=== PATIENT | female | born 1980 | race Caucasian/White ===

== ENCOUNTER 2017-05-30 21:25 | Emergency (ER) | payer SELFPAY ==
[~2017-05-30] VITALS: Ht 170.2 cm; Wt 83.2 kg
[~2017-05-30 21:25] MED LIST: BACTRIM DS1 TAB PO; CLEOCIN150 MG PO; FLEXERIL PO; KEFLEX500 MG PO; LIPITOR80 MG PO; LORCET 5-325 MG1 TAB; LORTAB 5/3255 MG PO; LORTAB 7.5-3251 TAB PO; LORTAB 7.57.5 MG PO; MOTRIN800 MG PO; MUCINEX D1 TAB PO; NAPROSYN500 MG PO; NO HOME MEDS; STERAPRED DS10 MG PO; ULTRAM50 M1 PO; ULTRAM50 MG PO; ZANAFLEX4 M2 PO; ZITHROMAX250 MG PO
[2017-05-30] MEDS ORDERED: NAPROSYN500 MG PO (22:29)
[2017-05-30 23:05] VITALS: BP 136/85
== END 2017-05-30 23:05 | disposition home or self-care (01) | DRG 563 ==
LOC: ED 21:25
DX: S46.911A Strain of unspecified muscle, fascia and tendon at shoulder and upper arm level, right arm, initial encounter (principal); F17.210 Nicotine dependence, cigarettes, uncomplicated; X50.9XXA Other and unspecified overexertion or strenuous movements or postures, initial encounter

== ENCOUNTER 2017-09-06 10:54 | Emergency (ER) | payer MEDICAID ==
[~2017-09-06] VITALS: Ht 170.2 cm; Wt 82.8 kg
[2017-09-06] MEDS ORDERED: PROVENTIL HFA IN (12:53)
[2017-09-06] MEDS ORDERED: ZITHROMAX250 MG PO (12:53)
[2017-09-06 13:26] VITALS: BP 124/80
== END 2017-09-06 13:27 | disposition home or self-care (01) | DRG 203 ==
LOC: ED 10:54
DX: J40 Bronchitis, not specified as acute or chronic (principal); F17.210 Nicotine dependence, cigarettes, uncomplicated; R05 Cough; R11.10 Vomiting, unspecified; R10.9 Unspecified abdominal pain; R09.89 Other specified symptoms and signs involving the circulatory and respiratory systems

== ENCOUNTER 2017-12-28 23:02 | Emergency (ER) | payer MEDICAID ==
[~2017-12-28] VITALS: Ht 165.1 cm; Wt 72.7 kg
[~2017-12-28 23:02] MED LIST changes: +PROVENTIL HFA IN
[2017-12-28] MEDS ORDERED: VYVANSE50 MG PO (23:09)
[2017-12-28] MEDS ORDERED: LIPITOR20 MG PO (23:09)
[2017-12-28] MEDS ORDERED: BUSPIRONE5 MG PO (23:10)
[2017-12-28 23:50] VITALS: BP 155/84
== END 2017-12-28 23:52 | disposition home or self-care (01) | DRG 605 ==
LOC: ED 23:02
DX: S90.31XA Contusion of right foot, initial encounter (principal); F17.210 Nicotine dependence, cigarettes, uncomplicated; W22.8XXA Striking against or struck by other objects, initial encounter

== ENCOUNTER 2018-02-20 00:59 | Emergency (ER) | payer OTHER ==
[~2018-02-20] VITALS: Ht 165.1 cm; Wt 69.4 kg
[~2018-02-20 00:59] MED LIST changes: +BUSPIRONE5 MG PO; +LIPITOR20 MG PO; +VYVANSE50 MG PO
[2018-02-20] MEDS ORDERED: BACTRIM DS1 TAB PO (01:28)
[2018-02-20 01:39] VITALS: BP 157/98
== END 2018-02-20 01:39 | disposition home or self-care (01) ==
LOC: ED 00:59
DX: L02.214 Cutaneous abscess of groin (principal); R10.32 Left lower quadrant pain; F17.210 Nicotine dependence, cigarettes, uncomplicated

== ENCOUNTER 2018-05-09 21:14 | Emergency (ER) | payer OTHER ==
[~2018-05-09] VITALS: Ht 167.6 cm; Wt 68.1 kg
[2018-05-09] MEDS ORDERED: ULTRAM50 M1 PO (22:24)
[2018-05-09 22:40] VITALS: BP 159/80
== END 2018-05-09 22:45 | disposition home or self-care (01) ==
LOC: ED 21:14
DX: S61.213A Laceration without foreign body of left middle finger without damage to nail, initial encounter (principal); S61.215A Laceration without foreign body of left ring finger without damage to nail, initial encounter; S61.217A Laceration without foreign body of left little finger without damage to nail, initial encounter; F90.9 Attention-deficit hyperactivity disorder, unspecified type; F41.9 Anxiety disorder, unspecified; F17.200 Nicotine dependence, unspecified, uncomplicated; W26.0XXA Contact with knife, initial encounter; Y93.89 Activity, other specified; Y92.009 Unspecified place in unspecified non-institutional (private) residence as the place of occurrence of the external cause

== ENCOUNTER 2019-08-24 | Emergency (ER) | payer OTHER ==
[2019-08-24] MEDS ORDERED: IBUPROFEN600 MG PO (00:16)
[2019-08-24] MEDS ORDERED: BENADRYL 50MG C50 MG PO (00:16)
[2019-08-24] MEDS ORDERED: LOMOTIL2.5 MG PO (00:16)
[2020-05-28] MEDS ORDERED: MOTRIN800 MG PO (11:11)
[2020-05-28] MEDS ORDERED: ALLEGRA180 MG PO (11:11)
[2020-05-28] MEDS ORDERED: METHOCARBAMOL500 MG PO (11:12)
[2020-05-28] MEDS ORDERED: OMEPRAZOLE DR40 MG PO (11:12)
[2020-05-28] MEDS ORDERED: LATANOPROST0.005 % OP (11:12)
[2020-05-28] MEDS ORDERED: PROAIR HFA IN (11:13)
== END 2019-08-24 01:00 | disposition home or self-care (01) ==
DX: S00.86XA Insect bite (nonvenomous) of other part of head, initial encounter (principal); S30.860A Insect bite (nonvenomous) of lower back and pelvis, initial encounter; R19.7 Diarrhea, unspecified; F17.210 Nicotine dependence, cigarettes, uncomplicated; W57.XXXA Bitten or stung by nonvenomous insect and other nonvenomous arthropods, initial encounter; Y92.828 Other wilderness area as the place of occurrence of the external cause

== ENCOUNTER 2019-10-09 | Emergency (ER) | payer OTHER ==
[~2019-10-09] MED LIST changes: +BENADRYL 50MG C50 MG PO; +IBUPROFEN600 MG PO; +LOMOTIL2.5 MG PO
[2019-10-09 23:44] LABS: URINE BILIRUBIN - DIPSTICK NEGATIVE (NEGATIVE); URINE BLOOD DIPSTICK NEGATIVE (NEGATIVE); URINE COLOR YELLOW; URINE GLUCOSE - DIPSTICK NEGATIVE (NEGATIVE); URINE KETONE NEGATIVE (NEGATIVE); URINE LEUK ESTERASE NEGATIVE (NEGATIVE); URINE NITRITE - DIPSTICK NEGATIVE (Negative); URINE PROTEIN - DIPSTICK NEGATIVE (NEG-TRACE); URINE SPECIFIC GRAVITY <=1.005; URINE UROBILINOGEN - DIPSTICK 0.2 E.U./dL (0.2)
[2019-10-10] MEDS ORDERED: MEDDOSEPAK PO (00:18)
[2019-10-10] MEDS ORDERED: ZITHROMAX250 MG PO (00:18)
[2019-10-10] MEDS ORDERED: ROBITUSSIN AC10 ML PO (00:21)
[2019-10-10] MEDS ORDERED: CORTISPORIN OTI10 ML AU (00:42)
[2019-10-10] MEDS ORDERED: TRAZODONE HCL100 MG PO (00:45)
[2019-10-10] MEDS ORDERED: VENLAFAXINE HCL75 M1 PO (00:46)
[2020-05-28] MEDS ORDERED: MOTRIN800 MG PO (11:11)
[2020-05-28] MEDS ORDERED: ALLEGRA180 MG PO (11:11)
[2020-05-28] MEDS ORDERED: OMEPRAZOLE DR40 MG PO (11:12)
[2020-05-28] MEDS ORDERED: LATANOPROST0.005 % OP (11:12)
[2020-05-28] MEDS ORDERED: METHOCARBAMOL500 MG PO (11:12)
[2020-05-28] MEDS ORDERED: PROAIR HFA IN (11:13)
== END 2019-10-10 00:38 | disposition home or self-care (01) ==
PROVIDERS: Emergency Medicine
DX: J06.9 Acute upper respiratory infection, unspecified (principal); F17.210 Nicotine dependence, cigarettes, uncomplicated

== ENCOUNTER 2019-11-17 | Emergency (ER) | payer OTHER ==
[~2019-11-17] MED LIST changes: +CORTISPORIN OTI10 ML AU; +MEDDOSEPAK PO; +ROBITUSSIN AC10 ML PO; +TRAZODONE HCL100 MG PO; +VENLAFAXINE HCL75 M1 PO
[2019-11-17 03:41] LABS: HEMATOCRIT 42.5 % (37.0-47.0); IMMATURE GRANULOCYTES 0.3 % (0.0-5.0); MEAN CELL VOLUME 91.6 fL CALC (80.0-100.0); MEAN CORPUSCULAR HGB 30.2 pG CALC (26.0-32.0); MEAN CORPUSCULAR HGB CONC 32.9 g/dL CAL (32.0-36.0); NEUT# 5.97 thou/uL (2.00-7.15); RED BLOOD COUNT 4.64 mill/uL (4.20-5.60); RED CELL DISTRI WIDTH 13.2 % (11.5-15.5)
[2019-11-17 03:49] LABS: ALBUMIN 4.4 g/dL (3.2-5.0); ALKALINE PHOSPHATASE 85 u/l (38-126); BUN 11 mg/dL (7-17); BUN/CREATININE RATIO 16 (12-20 (CALC)); CARBON DIOXIDE 25 mmol/l (22-30); CHLORIDE 106 mmol/l (95-108); CREATININE 0.7 mg/dL (0.5-1.0); ETHYL ALCOHOL 0 mg/dl (0-30); GFR > 60 ML/MIN (>=60 (CALC)); GFR FOR AFR.AMER. > 60 ML/MIN (>=60 (CALC)); LIPASE 33 u/l (23-300); SGOT/AST 33 u/l (14-36); SODIUM 138 mmol/l (137-146); TOTAL PROTEIN 7.5 g/dL (6.3-8.2)
[2019-11-17 03:51] LABS: ANION GAP 11 (6-22 (CALC)); BILIRUBIN, TOTAL 0.5 mg/dL (0.0-1.4); POTASSIUM 3.5 mmol/l (3.5-5.1)
[2019-11-17] MEDS ORDERED: TESSALON PER100 MG PO (05:56)
[2019-11-17] MEDS ORDERED: ZITHROMAX250 MG PO (05:56)
[2019-11-17] MEDS ORDERED: TRAMADOL HYDROC50 MG PO (05:56)
--- NOTE | 2019-11-20 10:12 | NUR ---
Notified patient of Covid results (Negative). Advised pt to follow up with PCP or come to ED for urgent needs. Advised pt to continue to practice Covid prevention such as handwashing and avoiding contact with others. Patient verbalized understanding.
[2020-05-28] MEDS ORDERED: MOTRIN800 MG PO (11:11)
[2020-05-28] MEDS ORDERED: ALLEGRA180 MG PO (11:11)
[2020-05-28] MEDS ORDERED: METHOCARBAMOL500 MG PO (11:12)
[2020-05-28] MEDS ORDERED: LATANOPROST0.005 % OP (11:12)
[2020-05-28] MEDS ORDERED: OMEPRAZOLE DR40 MG PO (11:12)
[2020-05-28] MEDS ORDERED: PROAIR HFA IN (11:13)
== END 2019-11-17 06:39 | disposition home or self-care (01) ==
DX: M94.0 Chondrocostal junction syndrome [Tietze] (principal); J06.9 Acute upper respiratory infection, unspecified; F17.210 Nicotine dependence, cigarettes, uncomplicated; Z20.828 Contact with and (suspected) exposure to other viral communicable diseases

== ENCOUNTER 2019-11-30 | Emergency (ER) | payer OTHER ==
[~2019-11-30] MED LIST changes: +TESSALON PER100 MG PO; +TRAMADOL HYDROC50 MG PO
[2019-11-30] MEDS ORDERED: TRAZODONE50 MG PO (23:32)
[2019-11-30] MEDS ORDERED: METOPROL TAR25 MG PO (23:33)
[2019-11-30] MEDS ORDERED: HYDROCHLOROT25 MG PO (23:34)
[2019-12-01 00:21] LABS: HEMATOCRIT 42.6 % (37.0-47.0); HEMOGLOBIN 14.1 g/dl (12.0-16.0); IMMATURE GRANULOCYTES 0.3 % (0.0-5.0); MEAN CELL VOLUME 91.6 fL CALC (80.0-100.0); MEAN CORPUSCULAR HGB 30.3 pG CALC (26.0-32.0); MEAN CORPUSCULAR HGB CONC 33.1 g/dL CAL (32.0-36.0); NEUT# 6.84 thou/uL (2.00-7.15); RED BLOOD COUNT 4.65 mill/uL (4.20-5.60); RED CELL DISTRI WIDTH 13.2 % (11.5-15.5)
[2019-12-01 00:27] LABS: URINE BILIRUBIN - DIPSTICK NEGATIVE (NEGATIVE); URINE BLOOD DIPSTICK MODERATE (NEGATIVE); URINE COLOR YELLOW; URINE GLUCOSE - DIPSTICK NEGATIVE (NEGATIVE); URINE KETONE NEGATIVE (NEGATIVE); URINE LEUK ESTERASE NEGATIVE (NEGATIVE); URINE NITRITE - DIPSTICK NEGATIVE (Negative); URINE PROTEIN - DIPSTICK NEGATIVE (NEG-TRACE); URINE SPECIFIC GRAVITY 1.025; URINE UROBILINOGEN - DIPSTICK 0.2 E.U./dL (0.2)
[2019-12-01 00:28] LABS: URINE BACTERIA FEW hpf; URINE EPITHELIAL CELLS MODERATE EPI/hpf (0-FEW)
[2019-12-01 00:32] LABS: CREATININE 0.6 mg/dL (0.5-1.0); GFR > 60 ML/MIN (>=60 (CALC)); GFR FOR AFR.AMER. > 60 ML/MIN (>=60 (CALC)); SODIUM 138 mmol/l (137-146)
[2019-12-01 01:25] LABS: ALBUMIN 4.4 g/dL (3.2-5.0); ALKALINE PHOSPHATASE 84 u/l (38-126); ANION GAP 13 (6-22 (CALC)); BILIRUBIN, TOTAL 0.4 mg/dL (0.0-1.4); BUN 9 mg/dL (7-17); BUN/CREATININE RATIO 14 (12-20 (CALC)); CARBON DIOXIDE 24 mmol/l (22-30); CHLORIDE 105 mmol/l (95-108); LIPASE 81 u/l (23-300); POTASSIUM 3.2 mmol/l (3.5-5.1); SGOT/AST 24 u/l (14-36); TOTAL PROTEIN 7.4 g/dL (6.3-8.2)
[2019-12-01] MEDS ORDERED: CIPROFLOXACN500 MG PO (03:02)
[2019-12-01] MEDS ORDERED: METRONIDAZOL500 MG PO (03:02)
--- NOTE | 2019-12-02 08:41 | NUR ---
COVID results called with confirmation of name and . Encouraged stay home - stay safe measures, frequent hand washing/sanitizing. Patient states she is feeling a little better. Instructed pt to seek medical care if needed.
[2020-05-28] MEDS ORDERED: ALLEGRA180 MG PO (11:11)
[2020-05-28] MEDS ORDERED: MOTRIN800 MG PO (11:11)
[2020-05-28] MEDS ORDERED: OMEPRAZOLE DR40 MG PO (11:12)
[2020-05-28] MEDS ORDERED: LATANOPROST0.005 % OP (11:12)
[2020-05-28] MEDS ORDERED: METHOCARBAMOL500 MG PO (11:12)
[2020-05-28] MEDS ORDERED: PROAIR HFA IN (11:13)
== END 2019-12-01 03:33 | disposition home or self-care (01) ==
PROVIDERS: Emergency Medicine
DX: K50.10 Crohn's disease of large intestine without complications (principal); T81.41XA Infection following a procedure, superficial incisional surgical site, initial encounter; Y83.8 Other surgical procedures as the cause of abnormal reaction of the patient, or of later complication, without mention of misadventure at the time of the procedure; F17.200 Nicotine dependence, unspecified, uncomplicated; Z20.828 Contact with and (suspected) exposure to other viral communicable diseases
CPT/HCPCS: Q9967

== ENCOUNTER 2020-01-06 13:50 | Emergency (ER) | payer OTHER ==
[~2020-01-06 13:50] MED LIST changes: +CIPROFLOXACN500 MG PO; +HYDROCHLOROT25 MG PO; +METOPROL TAR25 MG PO; +METRONIDAZOL500 MG PO; +TRAZODONE50 MG PO
[2020-01-06 15:31] VITALS: BP 137/90
[2020-05-28] MEDS ORDERED: ALLEGRA180 MG PO (11:11)
[2020-05-28] MEDS ORDERED: MOTRIN800 MG PO (11:11)
[2020-05-28] MEDS ORDERED: LATANOPROST0.005 % OP (11:12)
[2020-05-28] MEDS ORDERED: OMEPRAZOLE DR40 MG PO (11:12)
[2020-05-28] MEDS ORDERED: METHOCARBAMOL500 MG PO (11:12)
[2020-05-28] MEDS ORDERED: PROAIR HFA IN (11:13)
== END 2020-01-06 15:38 | disposition home or self-care (01) ==
LOC: ED 13:50
DX: S91.115A Laceration without foreign body of left lesser toe(s) without damage to nail, initial encounter (principal); S93.402A Sprain of unspecified ligament of left ankle, initial encounter; S93.602A Unspecified sprain of left foot, initial encounter; F17.210 Nicotine dependence, cigarettes, uncomplicated; W01.0XXA Fall on same level from slipping, tripping and stumbling without subsequent striking against object, initial encounter; Y92.009 Unspecified place in unspecified non-institutional (private) residence as the place of occurrence of the external cause

== ENCOUNTER 2020-02-15 23:12 | Emergency (ER) | payer OTHER ==
[~2020-02-15] VITALS: Ht 165.1 cm; Wt 65.9 kg
[2020-02-15] MEDS ORDERED: AMPHETAMINE PO (23:44)
[2020-02-15] MEDS ORDERED: DEX PO (23:44)
[2020-02-15] MEDS ORDERED: TRAZODONE100 MG PO (23:45)
[2020-02-15] MEDS ORDERED: ATIVAN1 MG PO (23:45)
[2020-02-15] MEDS ORDERED: VENLAFAXINE HCL75 M1 PO (23:45)
[2020-02-15] MEDS ORDERED: HYDROCHLOROT12.5 MG PO (23:45)
[2020-02-15] MEDS ORDERED: SPIRIVA HANDIH18 MCG IN (23:46)
[2020-02-15] MEDS ORDERED: PROAIR HFA108 MCG/AC IN (23:46)
[2020-02-15] MEDS ORDERED: SYMBICORT1 AE1 IN (23:46)
[2020-02-15] MEDS ORDERED: TOPAMAX50 MG PO (23:47)
[2020-02-15 23:55] VITALS: BP 172/87
[2020-02-16] MEDS ORDERED: PREDNISONE50 MG PO ×2 (00:26)
[2020-05-28] MEDS ORDERED: ALLEGRA180 MG PO (11:11)
[2020-05-28] MEDS ORDERED: MOTRIN800 MG PO (11:11)
[2020-05-28] MEDS ORDERED: METHOCARBAMOL500 MG PO (11:12)
[2020-05-28] MEDS ORDERED: LATANOPROST0.005 % OP (11:12)
[2020-05-28] MEDS ORDERED: OMEPRAZOLE DR40 MG PO (11:12)
[2020-05-28] MEDS ORDERED: PROAIR HFA IN (11:13)
== END 2020-02-16 00:43 | disposition home or self-care (01) ==
LOC: ED 23:12
DX: J45.901 Unspecified asthma with (acute) exacerbation (principal); F17.200 Nicotine dependence, unspecified, uncomplicated

== ENCOUNTER 2020-05-03 20:47 | Emergency (ER) | payer OTHER ==
[~2020-05-03] VITALS: Ht 165.1 cm; Wt 78.0 kg
[~2020-05-03 20:47] MED LIST changes: +AMPHETAMINE PO; +ATIVAN1 MG PO; +DEX PO; +HYDROCHLOROT12.5 MG PO; +PREDNISONE50 MG PO; +PROAIR HFA108 MCG/AC IN; +SPIRIVA HANDIH18 MCG IN; +SYMBICORT1 AE1 IN; +TOPAMAX50 MG PO; +TRAZODONE100 MG PO
[2020-05-03 23:07] VITALS: BP 143/78
[2020-05-28] MEDS ORDERED: MOTRIN800 MG PO (11:11)
[2020-05-28] MEDS ORDERED: ALLEGRA180 MG PO (11:11)
[2020-05-28] MEDS ORDERED: OMEPRAZOLE DR40 MG PO (11:12)
[2020-05-28] MEDS ORDERED: LATANOPROST0.005 % OP (11:12)
[2020-05-28] MEDS ORDERED: METHOCARBAMOL500 MG PO (11:12)
[2020-05-28] MEDS ORDERED: PROAIR HFA IN (11:13)
== END 2020-05-03 23:07 | disposition home or self-care (01) ==
LOC: ED 20:47
DX: S00.31XA Abrasion of nose, initial encounter (principal); R51 Headache; I10 Essential (primary) hypertension; F17.210 Nicotine dependence, cigarettes, uncomplicated; W22.09XA Striking against other stationary object, initial encounter; Y92.009 Unspecified place in unspecified non-institutional (private) residence as the place of occurrence of the external cause

== ENCOUNTER 2021-03-09 19:36 | Emergency (ER) | payer OTHER ==
[~2021-03-09] VITALS: Ht 167.6 cm; Wt 76.0 kg
[~2021-03-09 19:36] MED LIST changes: +ALLEGRA180 MG PO; +LATANOPROST0.005 % OP; +METHOCARBAMOL500 MG PO; +OMEPRAZOLE DR40 MG PO; +PROAIR HFA IN
[2021-03-09 21:21] LABS: HEMATOCRIT 47.8 % (37.0-47.0); HEMOGLOBIN 15.5 g/dl (12.0-16.0); IMMATURE GRANULOCYTES 0.1 % (0.0-5.0); MEAN CELL VOLUME 94.5 fL CALC (80.0-100.0); MEAN CORPUSCULAR HGB 30.6 pG CALC (26.0-32.0); MEAN CORPUSCULAR HGB CONC 32.4 g/dL CAL (32.0-36.0); NEUT# 8.71 thou/uL (2.00-7.15); RED BLOOD COUNT 5.06 mill/uL (4.20-5.60); RED CELL DISTRI WIDTH 12.4 % (11.5-15.5)
[2021-03-09 21:24] LABS: URINE BILIRUBIN - DIPSTICK NEGATIVE (NEGATIVE); URINE BLOOD DIPSTICK NEGATIVE (NEGATIVE); URINE COLOR YELLOW; URINE GLUCOSE - DIPSTICK NEGATIVE (NEGATIVE); URINE KETONE NEGATIVE (NEGATIVE); URINE LEUK ESTERASE NEGATIVE (NEGATIVE); URINE PROTEIN - DIPSTICK NEGATIVE (NEG-TRACE); URINE UROBILINOGEN - DIPSTICK 0.2 E.U./dL (0.2)
[2021-03-09 21:25] LABS: URINE NITRITE - DIPSTICK NEGATIVE (Negative)
[2021-03-09 21:39] LABS: ALKALINE PHOSPHATASE 81 u/l (38-126); AMYLASE 69 u/l (30-110); ANION GAP 17 (6-22 (CALC)); BILIRUBIN, TOTAL 0.3 mg/dL (0.0-1.4); BUN 11 mg/dL (7-17); BUN/CREATININE RATIO 15 (12-20 (CALC)); CARBON DIOXIDE 24 mmol/l (22-30); CHLORIDE 97 mmol/l (95-108); CREATININE 0.7 mg/dL (0.5-1.0); GFR > 60 ML/MIN (>=60 (CALC)); GFR FOR AFR.AMER. > 60 ML/MIN (>=60 (CALC)); LIPASE 51 u/l (23-300); SGOT/AST 23 u/l (14-36); SODIUM 134 mmol/l (137-146); TOTAL PROTEIN 8.4 g/dL (6.3-8.2)
[2021-03-09 21:44] LABS: POTASSIUM 4.1 mmol/l (3.5-5.1)
[2021-03-09] MEDS ORDERED: ONDANSETRON4 MG PO (23:10)
[2021-03-09] MEDS ORDERED: CIPROFLOXACN500 MG PO (23:10)
[2021-03-09] MEDS ORDERED: FLOXIN OTIC0.3 % AD (23:10)
[2021-03-10 00:31] VITALS: BP 108/66
== END 2021-03-10 00:48 | disposition home or self-care (01) ==
LOC: ED 19:36
PROVIDERS: Emergency Medicine
DX: K52.9 Noninfective gastroenteritis and colitis, unspecified (principal); H66.91 Otitis media, unspecified, right ear; I10 Essential (primary) hypertension; J44.9 Chronic obstructive pulmonary disease, unspecified; F41.9 Anxiety disorder, unspecified; F17.200 Nicotine dependence, unspecified, uncomplicated; Z20.822 Contact with and (suspected) exposure to COVID-19
CPT/HCPCS: J1956; S0164

== ENCOUNTER 2021-06-29 10:21 | Emergency (ER) | payer OTHER ==
[~2021-06-29] VITALS: Ht 167.6 cm; Wt 75.0 kg
[~2021-06-29 10:21] MED LIST changes: +FLOXIN OTIC0.3 % AD; +ONDANSETRON4 MG PO
[2021-06-29 13:04] LABS: HEMATOCRIT 47.3 % (37.0-47.0); HEMOGLOBIN 15.1 g/dl (12.0-16.0); IMMATURE GRANULOCYTES 0.2 % (0.0-5.0); MEAN CELL VOLUME 93.8 fL CALC (80.0-100.0); MEAN CORPUSCULAR HGB CONC 31.9 g/dL CAL (32.0-36.0); NEUT# 8.19 thou/uL (2.00-7.15); RED BLOOD COUNT 5.04 mill/uL (4.20-5.60); RED CELL DISTRI WIDTH 12.4 % (11.5-15.5)
[2021-06-29 13:35] LABS: ALBUMIN 4.7 g/dL (3.2-5.0); ALKALINE PHOSPHATASE 106 u/l (38-126); ANION GAP 14 (6-22 (CALC)); BUN 7 mg/dL (7-17); BUN/CREATININE RATIO 15 (12-20 (CALC)); CARBON DIOXIDE 24 mmol/l (22-30); CHLORIDE 106 mmol/l (95-108); CREATININE 0.5 mg/dL (0.5-1.0); GFR > 60 ML/MIN (>=60 (CALC)); GFR FOR AFR.AMER. > 60 ML/MIN (>=60 (CALC)); LIPASE 47 u/l (23-300); POTASSIUM 4.3 mmol/l (3.5-5.1); SGOT/AST 32 u/l (14-36); SODIUM 139 mmol/l (137-146); TOTAL PROTEIN 7.7 g/dL (6.3-8.2)
[2021-06-29 13:37] LABS: BILIRUBIN, TOTAL 0.6 mg/dL (0.0-1.4)
[2021-06-29 13:52] VITALS: BP 171/91
== END 2021-06-29 14:35 | disposition home or self-care (01) | DRG 552 ==
LOC: ED 10:21
PROVIDERS: Family Medicine
DX: S16.1XXA Strain of muscle, fascia and tendon at neck level, initial encounter (principal); M54.6 Pain in thoracic spine; I10 Essential (primary) hypertension; J44.9 Chronic obstructive pulmonary disease, unspecified; F41.9 Anxiety disorder, unspecified; F17.210 Nicotine dependence, cigarettes, uncomplicated; V53.6XXA Passenger in pick-up truck or van injured in collision with car, pick-up truck or van in traffic accident, initial encounter; Z20.822 Contact with and (suspected) exposure to COVID-19

== ENCOUNTER 2022-11-04 08:49 | Day surgery (SDC) | payer OTHER ==
[~2022-11-04 08:49] MED LIST changes: +ALBUTEROL SUL0.083 % IN; +ATIVAN0.5 MG PO; +EMGALITY120 MG/ML; +LAMICTAL100 M1 PO; +LISINOP/HCTZ1 TA1 PO; +VYVANSE60 M1
[2022-11-04] MEDS ORDERED: PERCOCET 5/321 COMBO PO (11:12)
[2022-11-04 12:13] VITALS: BP 119/73
== END 2022-11-04 12:25 | disposition home or self-care (01) ==
LOC: ORM 08:49
PROVIDERS: ATTEND Surgery
DX: K43.2 Incisional hernia without obstruction or gangrene (principal); I10 Essential (primary) hypertension; F17.210 Nicotine dependence, cigarettes, uncomplicated; Z90.710 Acquired absence of both cervix and uterus
CPT/HCPCS: J0131; J1100; J2710; S0077